=== PATIENT | female | born 1995 | race Two or more races ===

== ENCOUNTER 2018-07-21 10:53 | Emergency (ER) | payer MEDICAID ==
[~2018-07-21] VITALS: Ht 165.1 cm; Wt 65.0 kg
[2018-07-21 11:19] VITALS: BP 110/60
[2018-07-21] MEDS ORDERED: ACETAMINOPHEN 500MG TABLET PO NR (13:30)
== END 2018-07-21 14:16 | disposition home or self-care (01) ==
LOC: ER 10:53
DX: S06.0X9A Concussion with loss of consciousness of unspecified duration, initial encounter (principal); R51 Headache; V49.9XXA Car occupant (driver) (passenger) injured in unspecified traffic accident, initial encounter; Y93.9 Activity, unspecified; Y92.410 Unspecified street and highway as the place of occurrence of the external cause
CPT/HCPCS: 99282